=== PATIENT | male | born 1985 | race Caucasian/White ===

== ENCOUNTER 2018-08-10 23:38 | Emergency (ER) | payer OTHER ==
[2018-08-11] MEDS ORDERED: IOPAMIDOL 76% 75 ML INFUS BTL 75 ML ONE ×2 (00:29→00:38)
[2018-08-11 00:30] LABS: PLATELET COUNT, AUTOMATED 256 K/uL (150-450)
[2018-08-11 00:31] LABS: INR 1.05
--- NOTE | 2018-08-11 01:14 | RADIOLOGY IMAGING REPORT ---
FACILITY: [facility] PATIENT NAME: Julio Ayon : 1985 MR: [id number] V: [id number] EXAM DATE: [id number] ORDERING PHYSICIAN: VALERIANO DILLON TECHNOLOGIST: Location: [facility] Patient: Julio Ayon : 1985 Visit/Account:[id number] Date of Sevice: 08/11/[address] scan without contrast COMPARISONS: None ADDITIONAL PERTINENT HISTORY: Trauma TECHNIQUE: Multiple axial images were obtained from the skull base to the vertex without IV contrast . One of the following dose optimization techniques was utilized in the performance of this exam: Aut omated exposure control; adjustment of the mA and/or kV according to the patient's size; or use of an iterative reconstruction technique. Specific details can be referenced in the facility's radiology CT exam operational policy. FINDINGS: Midline shift: Midline shift from right to left measuring 7 mm. Ventricles: Mild compression of the right lateral ventricle. Brain parenchyma: Small region of hemorrhagic contusion involving the inferior medial aspects of bot h frontal lobes. Extra-axial spaces: Large extra-axial fluid collection overlying the right frontal lobe and the righ t temporal lobe anteriorly. The fluid collection overlying the anterior aspects of the right temporal lobe measures 2.3 x 5.7 cm and is felt to be larger than 30 mL. The fluid collection overlying the r ight frontal lobe measures 3.3 x 7.0 cm and also is felt to be greater than 30 mL in quantity. A thin subdural hematoma along the anterior inferior aspects of the interhemispheric falx is present. Intracranial vasculature: Negative Osseous structures: Extensive fractures involving the frontal sinuses with fracture planes extending through the anterior and posterior nesbitt of both frontal sinuses as well as fractures involving the ethmoid air cells and the central skull base anteriorly. There also findings of fractures involving t he right frontal bone and right temporal bone. There is a fracture involving the right zygomatic arch as well as the lateral aspects of the right maxillary sinus and the zygoma and the lateral wall of t he right orbits. There are findings of a nondisplaced fracture involving the right orbital floor. Paranasal sinuses and mastoid air cells: Hemorrhage within all paranasal sinuses. Surrounding soft tissues and orbits: Extensive frontal scalp soft tissue hematoma as well as right p eriorbital soft tissue hematoma and soft tissue hematoma involving the right frontal and right pariet al scalp. IMPRESSION: 1. Large right-sided epidural hematoma overlying the right temporal lobe and the right frontal lobe g reater than 30 mL in size. 2. Midline shift from right to left measuring approximately 7 mm. 3. Extensive fractures involving the face as well as the right frontal bone and right temporal bone. 4. Thin subdural hematoma overlying the anterior aspects of the interhemispheric falx. 5. Small hemorrhagic contusions involving the medial inferior aspects of both frontal lobes. Results were discussed with VALERIANO DILLON at 08/11/2018 1:10 AM. Report Dictated By: Sonido Hernandez MD at 08/11/2018 12:55 AM Report E-Signed By: Sonido Hernandez MD at 08/11/2018 1:11 AM [id number]
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
[2018-08-11 01:28] VITALS: BP 125/84
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
--- NOTE | 2018-08-11 02:04 | RADIOLOGY IMAGING REPORT ---
FACILITY: [facility] PATIENT NAME: Julio Ayon : 1985 MR: [id number] V: [id number] EXAM DATE: ORDERING PHYSICIAN: VALERIANO DILLON TECHNOLOGIST: Location: [facility] Patient: Julio Ayon : 1985 Visit/Account:[id number] Date of Sevice: 08/11/2018 CHEST SINGLE AP COMPARISONS: None. ADDITIONAL PERTINENT HISTORY: NG tube placement FINDINGS: Cardiomediastinal silhouette: Negative. Pulmonary vasculature: Negative. Lung hobbs: The visualized lower lung hobbs are clear. Pleural spaces: Negative. Osseous structures: Negative. Surrounding soft tissues: There are findings of an NG tube with its tip in the midportion of the sto mach. IMPRESSION: NG tube with its tip in the midportion of the stomach. Report Dictated By: Sonido Hernandez MD at 08/11/2018 1:58 AM Report E-Signed By: Sonido Hernandez MD at 08/11/2018 1:59 AM WSN:[id number]
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
--- NOTE | 2018-08-11 02:06 | RADIOLOGY IMAGING REPORT ---
FACILITY: [facility] PATIENT NAME: Julio Ayon : 1985 MR: [id number] V: [id number] EXAM DATE: ORDERING PHYSICIAN: VALERIANO DILLON TECHNOLOGIST: Location: [facility] - [place] Patient: Julio Ayon : 1985 Visit/Account:[id number] Date of Sevice: 08/11/2018 CHEST SINGLE AP COMPARISONS: Single view chest dated August 10, 2018 ADDITIONAL PERTINENT HISTORY: Tube placement FINDINGS: Life-support: Endotracheal tube with its tip approximately 4 cm above the philip. Cardiomediastinal silhouette: Negative. Pulmonary vasculature: Negative. Lung hobbs: Negative. Pleural spaces: Negative. Osseous structures: Negative. Surrounding soft tissues: Negative. IMPRESSION: 1. Endotracheal tube in good position. 2. No acute cardiopulmonary disease. Report Dictated By: Sonido Hernandez MD at 08/11/2018 2:00 AM Report E-Signed By: Sonido Hernandez MD at 08/11/2018 2:02 AM WSN:[id number]
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
[2018-08-11] MEDS ORDERED: PROPOFOL EMUL 10MG/ML 20 ML VL IVP ONE (03:20)
[2018-08-11] MEDS ORDERED: fentaNYL CITR 100 MCG/2 ML AMP IVP ONE (03:20)
[2018-08-11] MEDS ORDERED: ETOMIDATE 20 MG/10 ML VIAL IVP ONE (03:20)
[2018-08-11] MEDS ORDERED: SUCCINYLCHOL CHL 100MG/5ML SYR IVP ONE (03:20)
== END 2018-08-11 04:01 | disposition short-term general hospital (02) ==
LOC: EDBD 23:54 → ER 23:54
DX: S06.4X9A Epidural hemorrhage with loss of consciousness of unspecified duration, initial encounter (principal); S12.02XA Unstable burst fracture of first cervical vertebra, initial encounter for closed fracture; S02.81XA Fracture of other specified skull and facial bones, right side, initial encounter for closed fracture; S02.19XA Other fracture of base of skull, initial encounter for closed fracture; V09.9XXA Pedestrian injured in unspecified transport accident, initial encounter
CPT/HCPCS: 31500; 71045; 72170; 81001; 83605; 85025; 85610; 85730; 94002; 96374; 96375; 99291; 99292; J0330; J2704; J3010; J3490; Q9967; 82040; 82247; 82310; 82374; 82435; 82565; 82947; 84075; 84132; 84155; 84295; 84450; 84460; 84520

== ENCOUNTER → 2018-08-10 | Outpatient (CLI) | payer OTHER | LOC: AMB 23:35 | PROVIDERS: ATTEND Nurse Practitioner | DX: S06.5X1A Traumatic subdural hemorrhage with loss of consciousness of 30 minutes or less, initial encounter (principal); R40.0 Somnolence; R11.2 Nausea with vomiting, unspecified; V03.10XA Pedestrian on foot injured in collision with car, pick-up truck or van in traffic accident, initial encounter; Y92.414 Local residential or business street as the place of occurrence of the external cause | CPT/HCPCS: A0425; A0433 ==

== ENCOUNTER → 2018-08-11 | Outpatient (REF) | LOC: AMB 01:07 | PROVIDERS: ATTEND Nurse Practitioner | DX: S09.90XA Unspecified injury of head, initial encounter (principal) ==